=== PATIENT | female | born 1995 | race African-American/Black ===

== ENCOUNTER 2016-11-13 20:16 | Emergency (ER) | payer SELFPAY | END 2016-11-13 21:50 | disposition left against medical advice (07) | LOC: ER 20:16 | DX: Z53.21 Procedure and treatment not carried out due to patient leaving prior to being seen by health care provider (principal) ==

== ENCOUNTER 2016-12-25 21:19 | Emergency (ER) | payer SELFPAY ==
[2016-12-25] MEDS ORDERED: ACETAMINOPHEN 325 MG TABLET PO ONE (22:57)
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
[2016-12-26] MEDS ORDERED: CYCLOBENZAPRINE HCL 10 MG TABLET PO ONE (00:09)
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
[2016-12-26 01:20] VITALS: BP 121/64
== END 2016-12-26 01:20 | disposition home or self-care (01) ==
LOC: ER 21:19
DX: R51 Headache (principal); R07.9 Chest pain, unspecified; M54.9 Dorsalgia, unspecified; Y09 Assault by unspecified means; F17.200 Nicotine dependence, unspecified, uncomplicated
CPT/HCPCS: 72050; 72070; 72110; 99284

== ENCOUNTER 2018-04-19 06:27 | Emergency (ER) | payer SELFPAY ==
[2018-04-19] MEDS ORDERED: PENICILLIN V POTASSIUM 500 MG TABLET PO ONE (07:42)
[2018-04-19] MEDS ORDERED: KETOROLAC TROMETHAMINE 60 MG/2 ML SDV IM ONE (07:42)
--- NOTE | 2018-04-19 07:47 | ER Document Report ---
ED General - General Chief Complaint: Toothache Stated Complaint: MOUTH PAIN Time Seen by Provider: 04/19/18 07:34 TRAVEL OUTSIDE OF THE [place]. IN LAST 30 DAYS: No - HPI Notes: Patient is a 22-year-old female that presents to the emergency department for chief complaint of dental pain. Patient presents the emergency room for dental pain. She states about 1 year ago she chipped her left upper molar on a piece of candy. She has had intermittent pain since then. She noticed swelling and increased pain over the left side of her face starting yesterday. She has taken ibuprofen and Tylenol at home with minimal relief. The pain is sharp and nonradiating. She denies any difficulty breathing or swallowing. She denies any fevers. She denies any drainage into her mouth or bleeding. She denies facial trauma. She does not have a dentist. Past Medical History: Negative Past Surgical History: Negative Social History: Daily tobacco, occasional marijuana, denies alcohol Family History: Reviewed and noncontributory for presenting illness Allergies: Reviewed, see documented allergy list. REVIEW OF SYSTEMS: CONSTITUTIONAL : No fever No chills No diaphoresis No recent illness EENT: Dental pain, facial swelling No vision changes No congestion No sore throat CARDIOVASCULAR: No chest pain No palpitations RESPIRATORY: No shortness of breath No cough No difficulty breathing GASTROINTESTINAL: No abdominal pain No nausea No vomiting No diarrhea GENITOURINARY: No dysuria No hematuria No difficulty urinating MUSCULOSKELETAL: No back pain No leg pain No arm pain SKIN: No rashes No lesions LYMPHATIC: No swollen, enlarged glands. NEUROLOGICAL: No lightheadedness No headache No weakness No paresthesias PSYCHIATRIC: No anxiety No depression PHYSICAL EXAMINATION: Vital signs reviewed, nursing noted reviewed. GENERAL: Well-appearing, well-nourished and in no acute distress. HEAD: Atraumatic, normocephalic. EYES: Eyes appear normal, extraocular movements intact, sclera anicteric, conjunctiva are normal. ENT: nares patent, oropharynx clear without exudates. Moist mucous membranes. Dental decay of left posterior upper molar with tenderness to percussion. Left facial edema with no areas of fluctuance. No sublingual edema. NECK: Normal range of motion, supple without lymphadenopathy LUNGS: Breath sounds clear to auscultation bilaterally and equal. No wheezes rales or rhonchi. HEART: Regular rate and rhythm without murmurs ABDOMEN: Soft, nontender, normoactive bowel sounds. No rebound, guarding, or rigidity. No masses appreciated. EXTREMITIES: Nontender, good range of motion, no pitting or edema. NEUROLOGICAL: No focal neurological deficits. Moves all extremities spontaneously Motor and sensory grossly intact on exam. PSYCH: Normal mood, normal affect. SKIN: Warm, Dry, normal turgor, no rashes or lesions noted on exposed skin - Related Data Allergies/Adverse Reactions: No Known Allergies Allergy (Verified 06/28/16 12:23) Past Medical History - Social History Smoking Status: Current Every Day Smoker Family History: Reviewed & Not Pertinent Patient has suicidal ideation: No Patient has homicidal ideation: No Pulmonary Medical History: Reports: Hx Asthma Renal/ Medical History: Denies: Hx Peritoneal Dialysis - Immunizations Immunizations up to date: Yes Hx Diphtheria, Pertussis, Tetanus Vaccination: Yes Review of Systems - Review of Systems Notes: Dictated Physical Exam - Vital signs Vitals: Temp Pulse Resp BP Pulse Ox 98.3 F 90 14 129/82 H 100 04/19/18 06:38 04/19/18 06:38 04/19/18 06:38 04/19/18 06:38 04/19/18 06:38 - Notes Notes: Dictated Course - Re-evaluation Re-evalutation: 04/19/18 07:47 Vitals reviewed. Nursing note reviewed. Patient does not have a palpable abscess requiring drainage. She has no acute trauma or injury to the face and imaging not currently indicated. Patient has dental decay with infection that will be treated with penicillin. She was given IM Toradol in the emergency room for pain. She will be given naproxen and penicillin VK prescriptions as well as referral to a dental clinic. She will follow with the dentist in the next few days. She will return for new or worsening symptoms. Discharged home in stable condition. - Vital Signs Vital signs: Temp Pulse Resp BP Pulse Ox 98.3 F 90 14 129/82 H 100 04/19/18 06:38 04/19/18 06:38 04/19/18 06:38 04/19/18 06:38 04/19/18 06:38 Discharge - Discharge Clinical Impression: Dental infection Condition: Stable Disposition: HOME, SELF-CARE Instructions: [facility], Penicillin V K ([facility]), Dental Infection or Abscess ([facility]) Additional Instructions: Please return to the emergency department if you have any worsening, or concern of your symptoms. Please return to the emergency department if you develop chest pain, difficulty breathing, severe abdominal pain, or ongoing vomiting. Please follow-up with your primary care physician in 2-3 days and any other recommended physicians. If prescribed, take all medications as directed. If you have any questions or concerns do not hesitate to return the emergency department for evaluation. [] Prescriptions: Naproxen [Naprosyn] 500 mg PO BID PRN #30 tablet PRN Reason: Pain Scale Of 1 Penicillin V Potassium [Penicillin Vk 500 mg Tablet] 500 mg PO BID #20 tablet
[2018-04-19 08:38] VITALS: BP 135/91
== END 2018-04-19 08:40 | disposition home or self-care (01) ==
LOC: ER 06:27
DX: K04.7 Periapical abscess without sinus (principal); K02.9 Dental caries, unspecified; K08.89 Other specified disorders of teeth and supporting structures; F17.200 Nicotine dependence, unspecified, uncomplicated; J45.909 Unspecified asthma, uncomplicated
CPT/HCPCS: 99283; 96372; J1885

== ENCOUNTER 2018-12-28 15:57 | Emergency (ER) | payer SELFPAY ==
[2018-12-28] MEDS ORDERED: AZITHROMYCIN 250 MG TABLET PO ONE (16:20)
[2018-12-28] MEDS ORDERED: CEFTRIAXONE INJ 250 MG VIAL IM ONE (16:20)
[2018-12-28 16:33] VITALS: BP 155/77
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
[2018-12-28 17:11] LABS: BACTERIA (WET MOUNT) 3+ BACTERIA SEEN; RBCS (WET MOUNT) NO RBCS SEEN; T.VAGINALIS (WET MOUNT) NO TRICHOMONAS SEEN; WBCS (WET MOUNT) 2+ WBCS SEEN; YEAST (WET MOUNT) NO YEAST SEEN
== END 2018-12-28 17:25 | disposition home or self-care (01) ==
LOC: ER 15:57
DX: Z20.2 Contact with and (suspected) exposure to infections with a predominantly sexual mode of transmission (principal); J45.909 Unspecified asthma, uncomplicated; F17.200 Nicotine dependence, unspecified, uncomplicated
CPT/HCPCS: 99283; 96372; 87210; J0696

== ENCOUNTER 2019-08-31 11:48 | Emergency (ER) | payer SELFPAY ==
[2019-08-31] MEDS ORDERED: ONDANSETRON 4 MG TAB.RAPDIS PO ONE ×2 (13:15→16:30)
--- NOTE | 2019-08-31 13:16 | ER Document Report ---
ED Medical Screen (RME) - General Chief Complaint: Nausea/Vomiting Stated Complaint: NAUSEA,VOMITING Time Seen by Provider: 08/31/19 13:12 Notes: HPI: 24-year-old female who is a G2, presenting for evaluation of back pain, pelvic cramping and vaginal bleeding onset 1 week ago. Patient states her last menstrual cycle was in April and she did have a positive test in April has not yet seen HEAD USHER for this . Denies fever has had intermittent nausea vomiting episodes with the I have greeted and performed a rapid initial assessment of this patient. A comprehensive ED assessment and evaluation of the patient, analysis of test results and completion of the medical decision making process will be conducted by additional ED providers PHYSICAL EXAMINATION: GENERAL: Well-appearing, well-nourished and in mild acute distress. HEAD: Atraumatic, normocephalic. EYES: sclera anicteric, conjunctiva are normal. ENT: Moist mucous membranes. NECK: Normal range of motion LUNGS: Normal work of breathing HEART: 2+ radial pulses bilaterally ABD: limited by positioning for exam in triage. Unable to definitively palpate uterine enlargement. [employer]IAN exam deferred in triage EXTREMITIES: no pitting or edema. No cyanosis. NEUROLOGICAL: No focal neurological deficits. Moves all extremities spontaneously and on command. PSYCH: Normal mood, normal affect. SKIN: Warm, Dry, normal turgor, no rashes or lesions noted. TRAVEL OUTSIDE OF THE [place] IN LAST 30 DAYS: No - Related Data Allergies/Adverse Reactions: No Known Allergies Allergy (Verified 08/31/19 13:12) Past Medical History Pulmonary Medical History: Reports: Hx Asthma Renal/ Medical History: Denies: Hx Peritoneal Dialysis - Immunizations Immunizations up to date: Yes Hx Diphtheria, Pertussis, Tetanus Vaccination: Yes Physical Exam - Vital signs Vitals: Temp Pulse Resp BP Pulse Ox 98.7 F 75 16 126/66 H 99 08/31/19 12:08/31/19 12:08/31/19 12:08/31/19 12:08/31/19 12:25 Course - Vital Signs Vital signs: Temp Pulse Resp BP Pulse Ox 98.7 F 75 16 126/66 H 99 08/31/19 12:08/31/19 12:08/31/19 12:08/31/19 12:20 12:25
[2019-08-31 14:12] LABS: ABSOLUTE BASOPHILS # (AUTO) 0.1 10^3/uL (0.0-0.2); ABSOLUTE EOSINOPHILS # (AUTO) 0.1 10^3/uL (0.0-0.6); ABSOLUTE LYMPHOCYTES (AUTO) 2.8 10^3/uL (0.5-4.7); ABSOLUTE MONOCYTES (AUTO) 0.8 10^3/uL (0.1-1.4); ABSOLUTE NEUT (AUTO) 7.1 10^3/uL (1.7-8.2); EOSINOPHILS % (AUTO) 0.5 % (0-6); HEMOGLOBIN 13.3 g/dL (12.0-15.5); LYMPHOCYTES % (AUTO) 25.5 % (13-45); MEAN CORPUSCULAR HEMOGLOBIN 24.4 pg (27.0-33.4); MEAN CORPUSCULAR HGB CONC 32.4 g/dL (32.0-36.0); MEAN CORPUSCULAR VOLUME 76 fl (80-97); MONOCYTES % (AUTO) 7.6 % (3-13); PLATELET COUNT 235 10^3/uL (150-450); RED BLOOD COUNT 5.44 10^6/uL (3.72-5.28); RED CELL DISTRIBUTION WIDTH 14.3 % (11.5-14.0); SEGMENTED NEUTROPHILS % (AUTO) 65.4 % (42-78); TOTAL CELLS COUNTED % (AUTO) 100 %; WHITE BLOOD COUNT 10.8 10^3/uL (4.0-10.5)
[2019-08-31 14:28] LABS: APPEARANCE,URINE CLEAR; BILIRUBIN,URINE NEGATIVE (NEGATIVE); COLOR,URINE YELLOW; GLUCOSE, URINE NEGATIVE (NEGATIVE); KETONES,URINE NEGATIVE (NEGATIVE); LEUKOCYTE ESTERASE,URINE TRACE (NEGATIVE); NITRITE,URINE NEGATIVE (NEGATIVE); PROTEIN,URINE NEGATIVE (NEGATIVE); URINE SPECIFIC GRAVITY 1.014; UROBILINOGEN,URINE NEGATIVE mg/dL (<2.0)
[2019-08-31 14:32] LABS: ALBUMIN 4.7 g/dL (3.5-5.0); ALKALINE PHOSPHATASE 57 U/L (38-126); ANION GAP 12 (5-19); ASPARTATE AMINO TRANSFERASE 28 U/L (14-36); BILIRUBIN,DIRECT 0.2 mg/dL (0.0-0.4); BLOOD UREA NITROGEN 9 mg/dL (7-20); CALCIUM 9.3 mg/dL (8.4-10.2); CARBON DIOXIDE 25 mmol/L (22-30); CHLORIDE 101 mmol/L (98-107); GLUCOSE 99 mg/dL (75-110); POTASSIUM 4.2 mmol/L (3.6-5.0); TOTAL PROTEIN 8.5 g/dL (6.3-8.2)
--- NOTE | 2019-08-31 16:30 | RADIOLOGY REPORT (SQ) ---
EXAM DESCRIPTION: U/S OB TRANSVAG W/DOPPLER COMPLETED DATE/TIME: 08/31/2019 3:14 pm REASON FOR STUDY: vag bleed COMPARISON: None. TECHNIQUE: Dynamic and static grayscale images acquired of the pelvis via transvaginal approach and recorded on PACS. Additional selected color Doppler and spectral images recorded. Negative HCG today LIMITATIONS: None. FINDINGS: UTERUS: Contour normal. No mass. 9.5 x 4.8 x 4.7 cm in size ENDOMETRIAL STRIPE: No focal or generalized thickening. No masses. Endometrium less than 7 mm in thi ckness CERVIX: No nabothian cysts. RIGHT OVARY AND DOPPLER: Normal size, 3.9 x 2.7 x 1.6 cm. No worrisome masses. Normal arterial vascul ar flow without evidence for torsion. LEFT OVARY AND DOPPLER: Normal size, 3.7 x 2.2 x 1.9 cm. No worrisome masses. Normal arterial vascula r flow without evidence for torsion. FREE FLUID: None noted. OTHER: No other significant finding. IMPRESSION: NORMAL TRANSVAGINAL PELVIC ULTRASOUND. TECHNICAL DOCUMENTATION: JOB ID: [id number]- All Rights Reserved Rev-12/10 Reading location - IP/workstation name: [email or web address]
--- NOTE | 2019-08-31 16:49 | ER Document Report ---
ED General - General Chief Complaint: OB Problem (<20wks) Stated Complaint: NAUSEA,VOMITING Time Seen by Provider: 08/31/19 13:12 TRAVEL OUTSIDE OF THE [place] IN LAST 30 DAYS: No - HPI Notes: Nikki Rondon is a 24-year-old female 1 para 1 who says she took a test in early April at home and thought that this was weakly positive although she now thinks retrospectively it might have actually been a false positive. Since then she has had just some irregular spotting. This morning she started a regular menstrual period. She basically came in because she wanted to get an ultrasound and a test. Patient denies any past surgical history. No other long-term medical problems. No regular medications. No known allergies. Rare social alcohol consumption. No drug use. Smokes about 1/4 pack of cigarettes per day. No contraception. - Related Data Allergies/Adverse Reactions: No Known Allergies Allergy (Verified 08/31/19 13:12) Past Medical History - General Information source: Patient - Social History Smoking Status: Current Every Day Smoker Chew tobacco use (# tins/day): No Frequency of alcohol use: None Drug Abuse: None Family History: Reviewed & Not Pertinent Patient has suicidal ideation: No Patient has homicidal ideation: No Pulmonary Medical History: Reports: Hx Asthma Renal/ Medical History: Denies: Hx Peritoneal Dialysis - Immunizations Immunizations up to date: Yes Hx Diphtheria, Pertussis, Tetanus Vaccination: Yes Review of Systems - Review of Systems Notes: Constitutional: Negative for fever. HENT: Negative for sore throat. Eyes: Negative for visual changes. Cardiovascular: Negative for chest pain. Respiratory: Negative for shortness of breath. Gastrointestinal: Negative for abdominal pain, vomiting or diarrhea. Genitourinary: As per HPI. Negative for dysuria. Musculoskeletal: Negative for back pain. Skin: Negative for rash. Neurological: Negative for headaches, weakness or numbness. 10 point ROS negative except as marked above and in HPI. Physical Exam - Vital signs Vitals: Temp Pulse Resp BP Pulse Ox 98.7 F 75 16 126/66 H 99 08/31/19 12:25 08/31/19 12:25 08/31/19 12:25 08/31/19 12:25 08/31/19 12:25 - Notes Notes: GENERAL: Well-developed well-nourished appearing in no acute distress. SKIN: Good turgor no rashes. HEAD: Normocephalic atraumatic. EYES: PERRLA. EOMI. Conjunctivae and sclerae clear. EARS: CANALS AND TMS CLEAR. NOSE: CLEAR. MOUTH: Moist mucosa. Good dentition. No stridor or edema. No drooling. NECK: Supple. No masses or thyromegaly. No adenopathy. Carotids 2+ without bruits. No JVD. BACK: Symmetrical without tenderness. CHEST: Respirations unlabored. Breath sounds clear and symmetrical. HEART: Regular rhythm. No murmur gallop or rub. ABDOMEN: Soft nontender without masses, organomegaly or rebound. Bowel sounds normally active. No bruits. GENITALIA: Deferred. EXTREMITIES: No edema. No calf tenderness. Cap refill less than 1.5 seconds. Dorsalis pedis and posterior tibial pulses 3+ and symmetrical. NEUROLOGICAL: GCS 15. Alert and oriented x3. Normal gait. Fluent speech. Cranial nerves II through XII intact. Sensorimotor and cerebellar normal. N ormal tone. PSYCHIATRIC: Appropriate affect. Course - Re-evaluation Re-evalutation: 08/31/19 16:48 test is negative here and pelvic ultrasound reported as normal. 08/31/19 16:48 It is unclear whether this lady was previously had a miscarriage or whether she was never actually . At any rate I do not think there is any further intervention necessary here today and she will follow-up with her PMD. - Vital Signs Vital signs: Temp Pulse Resp BP Pulse Ox 98.8 F 90 18 129/79 H 98 08/31/19 16:27 08/31/19 16:27 08/31/19 16:27 08/31/19 16:27 08/31/19 16:27 - Laboratory Result Diagrams: 08/31/19 13:45 08/31/19 13:45 Laboratory results interpreted by me: 08/31/19 08/31/19 08/31/19 13:35 13:45 13:45 WBC 10.8 H RBC 5.44 H MCV 76 L MCH 24.4 L RDW 14.3 H Total Protein 8.5 H Urine Blood LARGE H Ur Leukocyte Esterase TRACE H Discharge - Discharge Clinical Impression: Menstrual irregularity Clinical Impression: (Ruled Out): Secondary amenorrhea Condition: Stable Disposition: HOME, SELF-CARE Additional Instructions: Return here as needed for new or worsening symptoms. Follow-up with your primary care doctor as directed.
[2019-08-31 17:05] VITALS: BP 126/84
== END 2019-08-31 16:58 | disposition home or self-care (01) ==
LOC: ER 11:48
DX: N92.6 Irregular menstruation, unspecified (principal); F17.210 Nicotine dependence, cigarettes, uncomplicated
CPT/HCPCS: 86900; 86901; 36415; 84702; 85025; 80053; 81001; 76817; 93976; S0119

== ENCOUNTER 2019-11-22 09:08 | Emergency (ER) | payer SELFPAY ==
[2019-11-22] MEDS ORDERED: ACETAMINOPHEN 325 MG TABLET PO ONE (10:29)
--- NOTE | 2019-11-22 10:30 | ER Document Report ---
HPI - HPI Time Seen by Provider: 11/22/19 10:01 Onset/Duration: Persistent Quality of pain: Achy Pain Level: 4 Context: Patient presents with upper respiratory symptoms including cough, sore throat and headache. Patient denies any fever. 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 Associated Symptoms: Nonproductive cough, Headache, Rhinnorhea, Sore throat. denies: Earache, Fever, Vomiting Exacerbated by: Denies Relieved by: Denies Similar symptoms previously: No Recently seen / treated by doctor: No - ROS ROS below otherwise negative: Yes Systems Reviewed and Negative: Yes All other systems reviewed and negative - CONSTITUTIONAL Constitutional: REPORTS: Chills - EENT EENT: REPORTS: Sore Throat, Congestion - NEURO Neurology: REPORTS: Headache. DENIES: Vision blurred, Dizzinesss / Vertigo - CARDIOVASCULAR Cardiovascular: DENIES: Chest pain - RESPIRATORY Respiratory: REPORTS: Coughing. DENIES: Trouble Breathing - GASTROINTESTINAL Gastrointestinal: DENIES: Nausea, Patient vomiting, Diarrhea - REPRODUCTIVE Reproductive: DENIES: : - DERM Skin Color: Normal Skin Problems: None Past Medical History - General Information source: Patient - Social History Smoking Status: Current Every Day Smoker Chew tobacco use (# tins/day): No Frequency of alcohol use: Social Drug Abuse: Marijuana Occupation: Foodservice Family History: Reviewed & Not Pertinent Patient has homicidal ideation: No - Medical History Medical History: Negative Pulmonary Medical History: Reports: Hx Asthma Renal/ Medical History: Denies: Hx Peritoneal Dialysis Surgical Hx: Negative - Immunizations Immunizations up to date: Yes Hx Diphtheria, Pertussis, Tetanus Vaccination: Yes Vertical Provider Document - CONSTITUTIONAL Agree With Documented VS: Yes Exam Limitations: No Limitations General Appearance: WD/WN, No Apparent Distress - INFECTION CONTROL TRAVEL OUTSIDE OF THE [place] IN LAST 30 DAYS: No - HEENT HEENT: Atraumatic, Normocephalic, Pharyngeal Tenderness, Pharyngeal Erythema. negative: Pharyngeal Exudate, Tympanic Membrane Bulging - NECK Neck: Normal Inspection, Supple. negative: Lymphadenopathy-Left, Lymphadenopathy-Right Notes: No meningismus - RESPIRATORY Respiratory: No Respiratory Distress, Chest Non-Tender, Other - Occasional dry cough. negative: Rales, Rhonchi, Wheezing - CARDIOVASCULAR Cardiovascular: Regular Rate, Regular Rhythm, No Murmur - GI/ABDOMEN Gastrointestinal: Abdomen Soft - BACK Back: Normal Inspection. negative: CVA Tenderness-Right, CVA Tenderness-Left - MUSCULOSKELETAL/EXTREMETIES Musculoskeletal/Extremeties: LILLIE VASQUEZ - NEURO Level of Consciousness: Awake, Alert, Appropriate Motor/Sensory: No Motor Deficit - DERM Integumentary: Warm, Dry, No Rash Course - Re-evaluation Re-evalutation: 11/22/19 Patient's respirations even unlabored, patient nontoxic in appearance. The patient presents with headache without signs of DRESSER TENDER bleed, stroke, infection, or other serious etiology. The patient is neurologically intact. Given the extr jhonny low risk of these diagnoses further testing and evaluation for these possibilities does not appear to be indicated at this time. The patient has been instructed to return if the symptoms worsen or change in any way. The patient was evaluated during the global Covid 19 pandemic, and that diagnosis was suspected/considered upon their initial presentation. Their evaluation, treatment and testing was consistent with current guidelines for patients who present with complaints or symptoms that may be related to Covid 19. Patient presents with upper respiratory symptoms worrisome for possible Covid 19. Patient does not have emergency worrying symptoms such as difficulty breathing, shortness of breath, chest pain, pressure, confusion or cyanosis. Patient appears suitable for discharge as they are not of an advanced age, do not have any chronic medical conditions such as diabetes, CAD, immune deficiency, chronic lung disease or chronic kidney disease. Patient's vital signs are stable and patient is nontoxic in appearance. Good return precautions have been discussed with patient, patient verbalized understanding and is agreeable with discharge plan of care at this time. Patient did not have a specimen sent for the coronavirus as she has normal vital signs, is not and does not have any high risk underlying chronic medical problems. Patient encouraged to home quarantine for the next 2 weeks. - Vital Signs Vital signs: Temp Pulse Resp BP Pulse Ox 98.9 F 81 12 145/72 H 98 11/22/19 09:27 11/22/19 09:27 11/22/19 09:27 11/22/19 09:27 11/22/19 09:27 Discharge - Discharge Clinical Impression: Sore throat Upper respiratory infection Qualifiers: URI type: unspecified URI Qualified Code(s): J06.9 - Acute upper respiratory infection, unspecified Condition: Stable Disposition: HOME, SELF-CARE Instructions: Acetaminophen, Headache ([facility]), Use of Fvzi-Uoh-Gviqjnl Ibuprofen ([facility]), Sore Throat ([facility]), Upper Respiratory Illness ([facility]) Additional Instructions: Return immediately for any new or worsening symptoms Followup with your primary care provider, call tomorrow to make a followup appointment Throat culture is pending, we will call if you need any different treatment Forms: Return to Work Referrals: [facility] [Provider Group] - Follow up as needed [facility] [Provider Group] - Follow up as needed
[2019-11-22 11:39] LABS: A TYPE INFLUENZA AG NEGATIVE (NEGATIVE); B INFLUENZA AG NEGATIVE (NEGATIVE)
--- NOTE | 2019-11-22 11:49 | RADIOLOGY REPORT (SQ) ---
EXAM DESCRIPTION: CHEST SINGLE VIEW IMAGES COMPLETED DATE/TIME: 11/22/2019 11:20 am REASON FOR STUDY: cough COMPARISON: None. NUMBER OF VIEWS: One view. TECHNIQUE: Single frontal radiographic view of the chest acquired. LIMITATIONS: None. FINDINGS: LUNGS AND PLEURA: No opacities, masses or pneumothorax. No pleural effusion. MEDIASTINUM AND HILAR STRUCTURES: No masses. Contour normal. HEART AND VASCULAR STRUCTURES: Heart normal in size. Normal vasculature. BONES: No acute findings. HARDWARE: None in the chest. OTHER: No other significant finding. IMPRESSION: NO SIGNIFICANT RADIOGRAPHIC FINDING IN THE CHEST. TECHNICAL DOCUMENTATION: JOB ID: [id number] 2010 [employer]- All Rights Reserved Reading location - IP/workstation name: [email or web address]
[2019-11-22 13:10] VITALS: BP 132/74
== END 2019-11-22 12:30 | disposition home or self-care (01) ==
LOC: ER 09:08
DX: J06.9 Acute upper respiratory infection, unspecified (principal); J02.9 Acute pharyngitis, unspecified; R05 Cough; R51 Headache; J34.89 Other specified disorders of nose and nasal sinuses; R68.83 Chills (without fever); J45.909 Unspecified asthma, uncomplicated; F17.200 Nicotine dependence, unspecified, uncomplicated; F12.10 Cannabis abuse, uncomplicated; Z20.828 Contact with and (suspected) exposure to other viral communicable diseases
CPT/HCPCS: 71045; 81025; 87070; 87077; 87804; 87880; 99283

== ENCOUNTER 2020-05-24 13:31 | Emergency (ER) | payer SELFPAY ==
--- NOTE | 2020-05-24 14:39 | ER Document Report ---
ED Medical Screen (RME) - General Chief Complaint: Abdominal Pain Stated Complaint: ABDOMINAL PAIN Time Seen by Provider: 05/24/20 14:33 Mode of Arrival: Ambulatory Information source: Patient Notes: 25-year-old female presents to the to ED for complaint of abdominal pain 2 to 3 days. She states her last menstrual period started on 1021 and is still going on. She states on about 1018 she spotted for 3 days before her period started. Patient is alert oriented respirations regular nonlabored speaking in full sentences. She states she vomited twice yesterday and once today. Denies any shortness of breath or fever. She states her last bowel movement was yesterday. She states she does smoke 6 cigarettes a day drinks every other day uses some marijuana and ecstasy. I have greeted and performed a rapid initial assessment of this patient. A comprehensive ED assessment and evaluation of the patient, analysis of test results and completion of medical decision making process will be conducted by an additional ED providers. TRAVEL OUTSIDE OF THE [place] IN LAST 30 DAYS: No - HPI Onset: Other - 2 days Onset/Duration: Gradual - and the pain is sharp dull achy throbbing, Worse Quality of pain: Cramping, Sharp Severity: Severe Pain Level: 5 Associated Symptoms: Abdominal pain, Nausea, Vomiting - Twice yesterday once today Exacerbated by: Denies Relieved by: Denies Similar symptoms previously: No Recently seen / treated by doctor: No - Related Data Allergies/Adverse Reactions: No Known Allergies Allergy (Verified 08/31/19 13:12) Past Medical History - Past Medical History Cardiac Medical History: Reports: None Pulmonary Medical History: Reports: Hx Asthma EENT Medical History: Reports: None Neurological Medical History: Reports: None Endocrine Medical History: Reports: None Renal/ Medical History: Reports: None Malignancy Medical History: Reports: None GI Medical History: Reports: None Musculoskeltal Medical History: Reports None Skin Medical History: Reports None Psychiatric Medical History: Reports: Hx Anxiety, Hx Bipolar Disorder, Hx Schizophrenia Traumatic Medical History: Reports: None Infectious Medical History: Reports: None Surgical Hx: Negative Past Surgical History: Reports: None - Immunizations Immunizations up to date: Yes Hx Diphtheria, Pertussis, Tetanus Vaccination: Yes Physical Exam - Vital signs Vitals: Temp Pulse Resp BP Pulse Ox 98.8 F 93 18 139/68 H 96 05/24/20 13:41 05/24/20 13:41 05/24/20 13:41 05/24/20 13:41 05/24/20 13:41 Course - Vital Signs Vital signs: Temp Pulse Resp BP Pulse Ox 98.8 F 93 18 139/68 H 96 05/24/20 13:41 05/24/20 13:41 05/24/20 13:41 05/24/20 13:41 05/24/20 13:41
[2020-05-24 15:21] LABS: ABSOLUTE BASOPHILS # (AUTO) 0.2 10^3/uL (0.0-0.2); ABSOLUTE LYMPHOCYTES (AUTO) 2.8 10^3/uL (0.5-4.7); ABSOLUTE MONOCYTES (AUTO) 1.2 10^3/uL (0.1-1.4); ABSOLUTE NEUT (AUTO) 15.6 10^3/uL (1.7-8.2); BASOPHILS % (AUTO) 0.8 % (0-2); EOSINOPHILS % (AUTO) 0.1 % (0-6); HEMATOCRIT 36.9 % (36.0-47.0); HEMOGLOBIN 12.2 g/dL (12.0-15.5); MEAN CORPUSCULAR VOLUME 76 fl (80-97); MONOCYTES % (AUTO) 6.3 % (3-13); PLATELET COUNT 229 10^3/uL (150-450); RED BLOOD COUNT 4.87 10^6/uL (3.72-5.28); RED CELL DISTRIBUTION WIDTH 14.5 % (11.5-14.0); SEGMENTED NEUTROPHILS % (AUTO) 78.8 % (42-78); TOTAL CELLS COUNTED % (AUTO) 100 %; WHITE BLOOD COUNT 19.8 10^3/uL (4.0-10.5)
--- NOTE | 2020-05-24 15:36 | RADIOLOGY REPORT (SQ) ---
EXAM DESCRIPTION: U/S NON-OB PELVIS W/O DOP IMAGES COMPLETED DATE/TIME: 05/24/2020 3:26 pm REASON FOR STUDY: Pelvic pain. Lasted more than 10 days COMPARISON: None. TECHNIQUE: Dynamic and static grayscale images acquired of the pelvis via transabdominal approach an d recorded on PACS. Additional selected color Doppler and spectral images recorded. LIMITATIONS: Patient refused transvaginal imaging. The bladder was incompletely distended which troy its evaluation. FINDINGS: UTERUS: Contour normal. No mass. ENDOMETRIAL STRIPE: No focal or generalized thickening. No masses. CERVIX: No nabothian cysts. RIGHT OVARY AND DOPPLER: Normal size. No worrisome masses. Normal arterial vascular flow without evid ence for torsion. LEFT OVARY AND DOPPLER: Ovary not visualized. FREE FLUID: None noted. OTHER: No other significant finding. MEASUREMENTS: UTERUS: 7.9 x 5.6 x 4.5 cm. ENDOMETRIAL STRIPE: 5.0 mm. RIGHT OVARY: 3.1 x 2.6 x 2.2 cm. LEFT OVARY: Not visualized. IMPRESSION: Nonvisualization of the left ovary in part due to low bladder volume. The patient refus ed transvaginal examination. The study is otherwise unremarkable. TECHNICAL DOCUMENTATION: JOB ID: [id number] 2010 [employer]- All Rights Reserved Rev Reading location - IP/workstation name: [email or web address]
[2020-05-24 15:40] LABS: ALBUMIN 4.8 g/dL (3.5-5.0); ALKALINE PHOSPHATASE 96 U/L (38-126); ANION GAP 12 (5-19); ASPARTATE AMINO TRANSFERASE 30 U/L (14-36); BILIRUBIN,DIRECT 0.1 mg/dL (0.0-0.4); BILIRUBIN,TOTAL 1.2 mg/dL (0.2-1.3); BLOOD UREA NITROGEN 9 mg/dL (7-20); CALCIUM 9.7 mg/dL (8.4-10.2); CARBON DIOXIDE 25 mmol/L (22-30); CHLORIDE 103 mmol/L (98-107); GLUCOSE 87 mg/dL (75-110); POTASSIUM 3.8 mmol/L (3.6-5.0); TOTAL PROTEIN 8.3 g/dL (6.3-8.2)
[2020-05-24] MEDS ORDERED: FENTANYL CITRATE INJ/PF 100 MCG/2 ML AMPUL IV ONE (16:02)
[2020-05-24] MEDS ORDERED: ONDANSETRON HCL INJ/PF 4 MG/2 ML SDV IV ONE (16:02)
--- NOTE | 2020-05-24 16:12 | ER Document Report ---
ED General - General Chief Complaint: Abdominal Pain Stated Complaint: ABDOMINAL PAIN Time Seen by Provider: 05/24/20 14:33 Mode of Arrival: Ambulatory TRAVEL OUTSIDE OF THE [place] IN LAST 30 DAYS: No - HPI Notes: Chief complaint: Pelvic pain, nausea and vomiting History of present illness: 25-year-old female 2 para 1 AB 1 presents with insidious onset of pelvic pain over several days associated with nausea but no vomiting. She says she has felt warm but has not taken her temperature. Denies chills. Normal bowel movements. Patient says she has been having a menstrual period for the last 13 days. No prior surgery. No regular medicatio ns. No known allergies. Following initial evaluation by midlevel provider at triage the patient had a pelvic CT. She agreed to the abdominal portion of exam but would not allow them to do the vaginal exam. - Related Data Allergies/Adverse Reactions: No Known Allergies Allergy (Verified 08/31/19 13:12) Past Medical History - General Information source: Patient - Social History Smoking Status: Current Every Day Smoker Frequency of alcohol use: Social Drug Abuse: Marijuana Lives with: Family Family History: Reviewed & Not Pertinent - Past Medical History Cardiac Medical History: Reports: None Pulmonary Medical History: Reports: Hx Asthma EENT Medical History: Reports: None Neurological Medical History: Reports: None Endocrine Medical History: Reports: None Renal/ Medical History: Reports: None Malignancy Medical History: Reports: None GI Medical History: Reports: None Musculoskeletal Medical History: Reports None Skin Medical History: Reports None Psychiatric Medical History: Reports: Hx Anxiety, Hx Bipolar Disorder, Hx Schizophrenia Traumatic Medical History: Reports: None Infectious Medical History: Reports: None Surgical Hx: Negative Past Surgical History: Reports: None - Immunizations Immunizations up to date: Yes Hx Diphtheria, Pertussis, Tetanus Vaccination: Yes Review of Systems - Review of Systems Notes: Constitutional: Negative for fever. HENT: Negative for sore throat. Eyes: Negative for visual changes. Cardiovascular: Negative for chest pain. Respiratory: Negative for shortness of breath. Gastrointestinal: As per HPI. Genitourinary: As per HPI. Musculoskeletal: Negative for back pain. Skin: Negative for rash. Neurological: Negative for headaches, weakness or numbness. 10 point ROS negative except as marked above and in HPI. Physical Exam - Vital signs Vitals: Temp Pulse Resp BP Pulse Ox 98.8 F 93 18 139/68 H 96 05/24/20 13:41 05/24/20 13:41 05/24/20 13:41 05/24/20 13:41 05/24/20 13:41 - Notes Notes: GENERAL: Slender female approximately stated age who appears uncomfortable. SKIN: Good turgor no rashes. HEAD: Normocephalic atraumatic. EYES: PERRLA. EOMI. Conjunctivae and sclerae clear. EARS: CANALS AND TMS CLEAR. NOSE: CLEAR. MOUTH: Moist mucosa. Good dentition. No stridor or edema. No drooling. NECK: Supple. No masses or thyromegaly. No adenopathy. Carotids 2+ without bruits. No JVD. BACK: Symmetrical without tenderness. CHEST: Respirations unlabored. Breath sounds clear and symmetrical. HEART: Regular rhythm. No murmur gallop or rub. ABDOMEN: Diffuse tenderness of lower abdomen. No involuntary guarding. Soft without masses, organomegaly or rebound. Bowel sounds normally active. No bruits. GENITALIA: Deferred. EXTREMITIES: No edema. No calf tenderness. Cap refill less than 1.5 seconds. Dorsalis pedis and posterior tibial pulses 3+ and symmetrical. NEUROLOGICAL: GCS 15. Alert and oriented x3. Normal gait. Fluent speech. Cranial nerves II through XII intact. Sensorimotor and cerebellar normal. Normal tone. PSYCHIATRIC: Anxious affect. Course - Re-evaluation Re-evalutation: 05/24/20 16:09 Patient's test is negative. Hemoglobin is normal. Her white count is elevated about 19,000. We still have a urine specimen back. I reviewed the ultrasound report and radiologist says he cannot adequately visualize the left ovary but reports the study is otherwise unremarkable. My differential diagnosis would be appendicitis, urinary tract infection, tubo- ovarian abscess, PID, diverticular abscess, ovarian torsion. I will keep patient n.p.o. and give her some fentanyl to control her pain. We will order a CT abdomen/pelvis with IV contrast. After get her pain controlled I will attempt to get back into a pelvic exam for her and may need to see if I can persuade her to undergo transvaginal ultrasound if diagnosis remains unclear. 05/24/20 20:13 CT abdomen pelvis with IV contrast showed no significant abnormalities per radiologist. Patient was much more comfortable after 1 dose of IV fentanyl. She still refused a pelvic exam and refused transvaginal ultrasound. Strongly suspect this patient has PID. Cannot absolutely rule out tubo-ovarian abscess without transvaginal ultrasound and I explained this to her. She wants to get some antibiotics and pain medicine follow-up with her primary tomorrow. I have given her Rocephin 250 mg IM and I will send her out on oral doxycycline and metronidazole as well as some tramadol. Findings, clinical impression and plan of treatment have been discussed with patient/family. Understanding of current findings and recommendations has been acknowledged by them and there is agreement regarding disposition and follow-up. - Vital Signs Vital signs: Temp Pulse Resp BP Pulse Ox 98.8 F 93 18 139/68 H 96 05/24/20 13:41 05/24/20 13:41 05/24/20 13:41 05/24/20 13:41 05/24/20 13:41 - Laboratory Result Diagrams: 05/24/20 14:50 05/24/20 14:50 Laboratory results interpreted by me: 05/24/20 05/24/20 05/24/20 14:50 14:50 18:00 WBC 19.8 H MCV 76 L MCH 25.0 L RDW 14.5 H Absolute Neuts (auto) 15.6 H Seg Neutrophils % 78.8 H Total Protein 8.3 H Urine Ketones 20 H Urine Blood LARGE H Ur Leukocyte Esterase TRACE H Discharge - Discharge Clinical Impression: Pelvic inflammatory disease (PID) Condition: Stable Disposition: HOME, SELF-CARE Additional Instructions: Pelvic Inflammatory Disease You have been diagnosed as having pelvic inflammatory disease (PID). This is an infection of the fallopian tubes and surrounding areas of the pelvis. Symptoms are usually pelvic pain and discharge. The infection can do permanent damage to the tubes and ovaries. It should be taken very seriously. Treatment is antibiotics, which may be given by vein or by injection if the infection seems serious. It's important that you receive all recommended medication. Condoms help prevent spread of this infection to others. Because this infection is spread sexually, it's important that your sexual partner be checked before resuming sexual relations. If a culture shows gonorrhea or chlamydia organisms, the law requires that this be reported to the health department. Call the doctor or return at once if you develop increasing fever, rash, severe pelvic pain, vaginal bleeding (other than your period), or problems with your bladder or bowels. Follow-up with your doctor within the next 2 to 3 days. Take prescribed medication as directed. Return here as needed for new or worsening symptoms: Pain that is worsening or unimproved Uncontrolled vomiting High fever or shaking chills Overall worsening Prescriptions: Tramadol HCl [Ultram 50 mg Tablet] 50 mg PO Q4HP PRN #12 tab PRN Reason: Doxycycline Monohydrate 100 mg PO BID #20 capsule Metronidazole 500 mg PO BID 10 Days #20 tablet Referrals: [facility] [Provider Group] - Follow up as needed
--- NOTE | 2020-05-24 17:50 | RADIOLOGY REPORT (SQ) ---
EXAM DESCRIPTION: CT ABD/PELVIS WITH IV ONLY IMAGES COMPLETED DATE/TIME: 05/24/2020 4:35 pm REASON FOR STUDY: r/o appendicitis, bilat. LQ pain COMPARISON: Pelvic ultrasound same date. TECHNIQUE: CT scan of the abdomen and pelvis performed using helical scanning technique with dynamic intravenous contrast injection. No oral contrast. Images reviewed with lung, soft tissue, and bone windows. Reconstructed coronal and sagittal MPR images reviewed. Delayed images for evaluation of the urinary system also acquired. All images stored on PACS. All CT scanners at this facility use dose modulation, iterative reconstruction, and/or weight based d osing when appropriate to reduce radiation dose to as low as reasonably achievable (ALARA). [facility]: Dose Right [facility]: CareDose [facility]: Dose Right [facility]: Teradose 4D [facility]: Jacked CONTRAST TYPE AND DOSE: contrast/concentration: Isovue 350.00 mmol/ml; Total Contrast Delivered: 100 .0 ml; Total Saline Delivered: 62.0 ml RENAL FUNCTION: GFR > 60. RADIATION DOSE: CT Rad equipment meets quality standard of care and radiation dose reduction techniq ues were employed. CTDIvol: 8.0 - 11.4 mGy. DLP: 924 mGy-cm.. LIMITATIONS: None. FINDINGS: LOWER CHEST: No significant findings. No nodules or infiltrates. LIVER: Normal size. No masses. No dilated ducts. SPLEEN: Normal size. No focal lesions. PANCREAS: No masses. No significant calcifications. No adjacent inflammation or peripancreatic fluid collections. Pancreatic duct not dilated. GALLBLADDER: No identified stones by CT criteria. No inflammatory changes to suggest cholecystitis. ADRENAL GLANDS: No significant masses or asymmetry. RIGHT KIDNEY AND URETER: No solid masses. No significant calcifications. No hydronephrosis or hyd roureter. LEFT KIDNEY AND URETER: No solid masses. No significant calcifications. No hydronephrosis or hydr oureter. AORTA AND VESSELS: No aneurysm. No dissection. Renal arteries, SMA, celiac without stenosis. RETROPERITONEUM: No retroperitoneal adenopathy, hemorrhage or masses. BOWEL AND PERITONEAL CAVITY: There is no bowel obstruction. No bowel wall thickening. No abnormal e nhancement or significant inflammatory change. No mass. Small amount of ascites in the pelvis. No pneumoperitoneum. APPENDIX: Normal. PELVIS: Uterus and ovaries have normal size. Small amount of fluid in the pelvis. Bilateral calcifi ed pelvic phleboliths. Urinary bladder has normal contour and appearance. ABDOMINAL WALL: No masses. No hernias. BONES: No significant or acute findings. OTHER: No other significant finding. IMPRESSION: 1. Small amount of ascites in the pelvis. This may be infectious or inflammatory. Uterus and ovarie s have normal size. 2. Appendix is normal. TECHNICAL DOCUMENTATION: JOB ID: [id number] Quality ID # [id number]: Final reports with documentation of one or more dose reduction techniques (e.g., Au tomated exposure control, adjustment of the mA and/or kV according to patient size, use of iterative reconstruction technique) 2010 [employer]- All Rights Reserved Reading location - IP/workstation name: [email or web address]
[2020-05-24 18:54] LABS: APPEARANCE,URINE CLEAR; BILIRUBIN,URINE NEGATIVE (NEGATIVE); COLOR,URINE YELLOW; GLUCOSE, URINE NEGATIVE (NEGATIVE); KETONES,URINE 20 mg/dL (NEGATIVE); LEUKOCYTE ESTERASE,URINE TRACE (NEGATIVE); NITRITE,URINE NEGATIVE (NEGATIVE); PROTEIN,URINE NEGATIVE (NEGATIVE); URINE SPECIFIC GRAVITY 1.045; UROBILINOGEN,URINE NEGATIVE mg/dL (<2.0)
[2020-05-24 19:10] LABS: URINE AMPHETAMINES SCREEN NEGATIVE; URINE BARBITURATES SCREEN NEGATIVE; URINE BENZODIAZEPINES SCREEN NEGATIVE; URINE METHADONE SCREEN NEGATIVE; URINE PHENCYCLIDINE SCREEN NEGATIVE
[2020-05-24 19:21] LABS: URINE COCAINE SCREEN UNCONFIRMED POSITIVE; URINE MARIJUANA (THC) SCREEN UNCONFIRMED POSITIVE
[2020-05-24] MEDS ORDERED: CEFTRIAXONE INJ 250 MG VIAL IM ONE (19:28)
[2020-05-24] MEDS ORDERED: LIDOCAINE 1% INJ-PF (10 MG/ML) 30 ML SDV ONE (19:36)
[2020-05-24] MEDS ORDERED: HYDROCODONE/ACETAMINOPHEN 5-325 MG (6 TAB/ER DISP) PO PRN (20:27)
[2020-05-24 21:04] VITALS: BP 149/81
== END 2020-05-24 21:04 | disposition home or self-care (01) ==
LOC: ER 13:31
DX: N73.9 Female pelvic inflammatory disease, unspecified (principal); R18.8 Other ascites; R10.2 Pelvic and perineal pain; R11.0 Nausea; F17.200 Nicotine dependence, unspecified, uncomplicated; F12.10 Cannabis abuse, uncomplicated; J45.909 Unspecified asthma, uncomplicated
CPT/HCPCS: 99285; 96372; 96374; 96375; 36415; 87086; 83690; 84703; 85025; 80053; 81001; 80307; 76856; 74177; J3010; J3490; J2405; J0696

== ENCOUNTER 2020-07-25 16:07 | Emergency (ER) | payer SELFPAY ==
[2020-07-25 19:12] LABS: APPEARANCE,URINE SLIGHTLY-CLOUDY; BILIRUBIN,URINE NEGATIVE (NEGATIVE); COLOR,URINE YELLOW; GLUCOSE, URINE 50 mg/dL (NEGATIVE); KETONES,URINE NEGATIVE (NEGATIVE); LEUKOCYTE ESTERASE,URINE NEGATIVE (NEGATIVE); NITRITE,URINE NEGATIVE (NEGATIVE); PROTEIN,URINE NEGATIVE (NEGATIVE); URINE SPECIFIC GRAVITY 1.031; UROBILINOGEN,URINE NEGATIVE mg/dL (<2.0)
[2020-07-25] MEDS ORDERED: KETOROLAC TROMETHAMINE 60 MG/2 ML SDV IM ONE (21:42)
[2020-07-25] MEDS ORDERED: OXYCODONE-ACETAMINOPHEN 5-325 MG TABLET PO ONE (21:42)
[2020-07-25] MEDS ORDERED: DEXAMETHASONE SOD PHOS INJ 10 MG/1 ML VIAL IM ONE (21:43)
[2020-07-25] MEDS ORDERED: CLINDAMYCIN HCL 150 MG CAPSULE PO ONE (21:43)
--- NOTE | 2020-07-25 21:45 | ER Document Report ---
ED General - General Chief Complaint: Toothache Stated Complaint: TOOTH PAIN Time Seen by Provider: 07/25/20 17:22 Mode of Arrival: Ambulatory Information source: Patient Notes: Patient is a 25-year-old female comes emergency room complaining of dental pain. Also some swelling to the right lower jaw. Patient states that she went to bed last night with just a little tooth ache woke up this morning with some minor swelling on the right lower jaw area. She denies any difficulty in swallowing. No other complaints at this time. Patient does state that she is 2 months late in her. Is not sure whether she is or not. TRAVEL OUTSIDE OF THE [place] IN LAST 30 DAYS: No - HPI Onset: Yesterday Onset/Duration: Gradual Quality of pain: Cramping, Throbbing Severity: Moderate Pain Level: 3 Associated symptoms: None Exacerbated by: Other - Hot and cold Relieved by: Denies Similar symptoms previously: Yes Recently seen / treated by doctor: No - Related Data Allergies/Adverse Reactions: No Known Allergies Allergy (Verified 08/31/19 13:12) Past Medical History - General Information source: Patient - Social History Smoking Status: Current Every Day Smoker Cigarette use (# per day): Yes - Half pack Chew tobacco use (# tins/day): No Smoking Education Provided: Yes Frequency of alcohol use: None Drug Abuse: None Lives with: Family Family History: Reviewed & Not Pertinent Pulmonary Medical History: Reports: Hx Asthma Psychiatric Medical History: Reports: Hx Anxiety, Hx Bipolar Disorder, Hx Schizophrenia - Immunizations Immunizations up to date: Yes Hx Diphtheria, Pertussis, Tetanus Vaccination: Yes Review of Systems - Review of Systems Constitutional: No symptoms reported EENT: See HPI, Dental problem Cardiovascular: No symptoms reported Respiratory: No symptoms reported Gastrointestinal: No symptoms reported Genitourinary: No symptoms reported Female Genitourinary: No symptoms reported Musculoskeletal: No symptoms reported Skin: No symptoms reported Hematologic/Lymphatic: No symptoms reported Neurological/Psychological: No symptoms reported -: Yes All other systems reviewed and negative Physical Exam - Vital signs Vitals: Temp Pulse Resp BP Pulse Ox 98.4 F 65 18 132/82 H 99 07/25/20 21:54 07/25/20 21:54 07/25/20 21:54 07/25/20 21:54 07/25/20 21:54 Interpretation: Hypertensive Notes: PHYSICAL EXAMINATION: GENERAL: Patient is a well-nourished well-developed 25-year-old female no apparent distress on examination this evening.. HEAD: , normocephalic. Visual inspection of the external features of patient's face does show some minor swelling on the right lower mandibular area. Palpation to the area does not show any fluctuance. There is no warmth or cellulitic presentation. Further evaluation of patient's oral cavity does show decayed teeth. Tooth in question is tooth #30 moderate amount of decay. There is some minimal swelling around the tooth gumline with some erythema noted. Palpation of the area does not show any fluctuance or any drainage at this time. Palpation of the cheek lining and gum also did not show any fluctuance or abscess type formation at this time. Mostly inflamed tissue is present. EYES: Pupils equal round and reactive to light, extraocular movements intact, conjunctiva are normal. ENT: See head above for full detail NECK: Normal range of motion, supple without lymphadenopathy LUNGS: Breath sounds clear to auscultation bilaterally and equal. No wheezes rales or rhonchi. HEART: Regular rate and rhythm without murmurs NEUROLOGICAL: . Normal speech, normal gait. Normal sensory, motor exams PSYCH: Normal mood, normal affect. SKIN: Warm, Dry, normal turgor, no rashes or lesions noted. Course - Re-evaluation Re-evalutation: 07/26/20 00:35 Patient's extended time of stay was secondary to waiting on hCG results. Patient was not so she was placed on clindamycin and pain medication given a shot of steroids to help reduce the inflammation and as well as Toradol. Patient felt better on her reexamination prior to discharge. - Vital Signs Vital signs: Temp Pulse Resp BP Pulse Ox 98.4 F 65 18 132/82 H 99 07/25/20 21:54 07/25/20 21:54 07/25/20 21:54 07/25/20 21:54 07/25/20 21:54 - Laboratory Results Laboratory Results Interpreted: 07/25/20 17:45 Urine Glucose (UA) 50 H Urine Blood SMALL H Critical Laboratory Results Reviewed: No Critical Results - Radiology Results Critical Radiology Results Reviewed: No Critical Results Discharge - Discharge Clinical Impression: Dental infection Condition: Stable Disposition: HOME, SELF-CARE Instructions: Clindamycin ([facility]), Oral Narcotic Medication ([facility]), Toothache ([facility]) Additional Instructions: Home and rest. Use the medication as prescribed. Take all the antibiotics. Ice to the jaw 3 times a day. You can also use ibuprofen 800 mg 3 times a day for the swelling. As we discussed you must see a dentist to get this fixed. However should you have increased swelling of spike a fever or unable to handle your secretions or it gets more firm return to ER for reevaluation. Prescriptions: Acetaminophen with Codeine [Tylenol #3 Tablet] 1 each PO Q4HP PRN #16 tablet PRN Reason: Clindamycin HCl 300 mg PO Q6 #40 capsule Fluconazole [Diflucan] 150 mg PO ONCE #1 tablet Forms: Elevated Blood Pressure, Smoking Cessation Education, Return to Work
[2020-07-25 21:58] VITALS: BP 132/82
== END 2020-07-25 22:15 | disposition home or self-care (01) ==
LOC: ER 16:07
DX: K04.7 Periapical abscess without sinus (principal); K02.9 Dental caries, unspecified; K08.89 Other specified disorders of teeth and supporting structures; F17.210 Nicotine dependence, cigarettes, uncomplicated; J45.909 Unspecified asthma, uncomplicated; Z32.02 Encounter for pregnancy test, result negative
CPT/HCPCS: 99284; 96372; 81025; 81001; J1885; J1100